=== PATIENT | female | born 1970 | race Caucasian/White ===

== ENCOUNTER 2019-01-01 09:25 | Emergency (ER) | payer BC ==
[~2019-01-01] VITALS: Ht 172.7 cm; Wt 63.5 kg
[2019-01-01 09:34] VITALS: Ht 172.7 cm; Wt 63.5 kg
[2019-01-01 11:47] VITALS: BP 130/78
== END 2019-01-01 12:22 | disposition home or self-care (01) ==
LOC: ED 09:25
DX: E16.2 Hypoglycemia, unspecified (principal)
CPT/HCPCS: 36415; 82947; 82962